=== PATIENT | male | born 1990 | race Two or more races ===

== ENCOUNTER 2024-01-11 11:02 | Inpatient (IN) ==
--- NOTE | 2024-01-11 11:19 | Emergency Department Note ---
Impression & Plan Suicidal ideations, Marijuana use, Depression, Anxiety ED Provider Note NAME: NIGEL HUMMEL AGE: 33 SEX: M : 1990 ARRIVES VIA: [employer] INFORMANT: Patient ED PROVIDER(S): David Lainez DO CHIEF COMPLAINT: SI HPI: Patient is a 33-year-old male with a past medical history of depression, anxiety, who presents to the ER for suicidal ideations with a plan to overdose on medications. He notes he is just waiting to get the antimotility medicine so we can keep the medicines in him longer. He notes he would overdose on his psychotic medications. Denies any headache or change in vision. No chest pain or shortness of breath. No dysuria, urgency, or frequency. Admits to a history of depression and anxiety which is worsened since 2019 when his mom got sick. He notes that he has lost a fair amount of weight over the past year and is following with GI. ADDITIONAL HISTORY OBTAINED: Per HPI Chronic Medical/Social Conditions Affecting Care: Per HPI PAST MEDICAL HISTORY:See Below PAST SURGICAL HISTORY:See Below FAMILY HISTORY:See Below SOCIAL HISTORY:See Below HOME MEDICATIONS:See Below ALLERGIES:See Below VITALS:See Below PHYSICAL EXAMINATION: GENERAL: Sitting up in bed, alert, well appearing, well nourished, no distress, non-toxic EYE EXAM: normal conjunctiva. OROPHARYNX: no exudate, no erythema, lips, buccal mucosa, and tongue normal and mucous membranes are moist NECK: supple, no nuchal rigidity, no adenopathy, non-tender LUNGS: Clear to auscultation. Normal chest wall mechanics HEART: no murmurs, S1 normal and S2 normal ABDOMEN: abdomen soft, non-tender, normo-active bowel sounds, no masses, no rebound or guarding. UPPER EXTREMITIES: upper extremities are grossly normal. LOWER EXTREMITIES: No pitting edema. NEURO EXAM: Normal sensorium, cranial nerves II-XII grossly intact, normal speech, no gross weakness of arms, no gross weakness of legs. No drift. Finger to nose intact. Gross sensation intact. PSYCH: Admits to suicidal ideations with a plan to overdose MEDICAL DECISION MAKING: Patient is a 33-year-old male who presents to the ER for suicidal ideations with a plan to kill himself. Blood work was obtained. Labs show no significant leukocytosis or anemia. BMP with LFTs and TSH was unremarkable. UA was clean. Tox was negative with the exception of marijuana. Alcohol and COVID-negative. Patient was discussed with her psychiatric day care worker. Seen and evaluated by 3 S. after referral was made and admitted for further workup. Consults/Care Managements Discussions: Per [facility] Triage Nursing notes reviewed. Limited review of prior medical records performed Vital Signs: reviewed and remarkable for no significant abnormalities Differential diagnosis: Mood disorder, infection, hypoglycemia, electrolyte abnormalities, cardiac sources, intracerebral event, toxicologic, trauma, neurologic, as well as other pathologies. ER treatment provided: See below Diagnostics interpreted by me include EKG and cardiac monitoring as listed below: -ECG: none -Laboratory studies:Interpreted by me as stated above in MDM and shown below. Imaging studies: Xrays: As interpreted by me:none CTs show: none Procedures:none Critical Care: None Past Med/Surg History Problem List (Updated 01/11/24 @ 16:37 by David Lainez DO) Anxiety (Acute) Depression (Acute) Marijuana use (Acute) Suicidal ideations (Acute) Social History Smoking Status: Current every day smoker Preferred Language: Greek Feels Safe at Home: Yes Gender Identity: Male Allergies Allergies Allergy/AdvReac Type Severity Reaction Status Date / Time animal dander Allergy Intermediate ITCHY Verified 11/06/23 17:12 EYES, SNEEZING cat dander Allergy Intermediate ITCHY Verified 11/06/23 17:12 EYES, SNEEZING, CONGESTION dog dander Allergy Intermediate ITCHY Verified 11/06/23 17:12 EYES, SNEEZING milk Allergy Intermediate POSITIVE Verified 11/06/23 17:12 TEST, GI UPSET Milk Containing Products Allergy Intermediate Gastrointestinal Verified 11/06/23 17:12 (Dairy) Upset pollen extracts Allergy Intermediate ITCHY Verified 11/06/23 17:12 EYES, RUNNY NOSE, SNEEZING, CONGESTION HOUSE RODENTS Allergy Intermediate ITCHY Uncoded 11/06/23 17:12 EYES, SNEEZING, CONGESTION Home Meds Home Medications Medication Instructions Recorded Confirmed montelukast 10 mg tablet 10 mg PO QAM 01/06/23 01/11/24 (Singulair) multivitamin 1 tab PO QAM 01/06/23 01/11/24 albuterol sulfate 2.5 mg/3 mL 2.5 mg inhalation DIRECTED PRN 11/06/23 01/11/24 (0.083 %) solution for nebulization Shortness Of Breath Or Wheezing albuterol sulfate 90 mcg/actuation 2 puff inhalation QID PRN 11/06/23 01/11/24 aerosol inhaler Shortness Of Breath Or Wheezing cariprazine 1.5 mg capsule 1.5 mg PO DAILY 11/06/23 01/11/24 (Vraylar) loratadine 10 mg tablet (Claritin) 10 mg PO DAILY PRN Congestion 11/06/23 01/11/24 venlafaxine 75 mg capsule,extended 75 mg PO QAM 11/06/23 01/11/24 release 24 hr Previous Rx's Medication Instructions Recorded sucralfate 1 gram tablet (Carafate) 1 g PO ACHS #28 tabs 11/06/23 Results & Data (ED) Vital Signs Vital Signs - 24 hr 01/11/24 11:30 01/11/24 11:39 01/11/24 13:21 Temperature 36.8 C 36.8 C Temperature Source Oral Oral Pulse Rate 109 H Pulse Rate [Finger] 109 H 80 Pulse Rhythm Regular Pulse Rhythm [Finger] Regular Regular Pulse Strength Normal Pulse Strength [Finger] Normal Normal Respiratory Rate 20 20 18 Respiratory Effort / Characteristics Non-Labored Spontaneous Non-Labored Spontaneous Respiratory Depth Normal Normal Normal Blood Pressure 166/84 H Blood Pressure [Left Arm] 166/84 H 132/78 Blood Pressure Mean 111 Blood Pressure Mean [Left Arm] 111 96 Blood Pressure Position Sitting Blood Pressure Position [Left Arm] Sitting Lying Pulse Oximetry 96 96 96 Oxygen Delivery Method Room Air Room Air Room Air Sepsis Recent Fever Within 48 Hours No Sepsis New/Unexplained Change in Mental Status N/A Sepsis Action Taken by Nursing No Action Required Laboratory Data 01/11/24 11:23 01/11/24 11:23 Lab Results 01/11/24 01/11/24 01/11/24 Range/Units 11:23 11:28 Unknown WBC 7.74 (4.8-10.8) K/ul RBC 5.78 (4.70-6.10) M/uL Hgb 16.5 (14.0-18.0) g/dl Hct 48.4 (42.0-52.0) % MCV 83.7 (80.0-100.0) fL MCH 28.5 (25.0-34.0) pg MCHC 34.1 (32.0-36.0) g/dL RDW Std Deviation 40.3 (36.4-46.3) fL RDW Coeff of Deven 13.2 (11.5-14.5) % Plt Count 271 (130-400) K/uL MPV 10.3 (9.4-12.4) fL Immature Gran % (Auto) 0.6 % Neut % (Auto) 47.5 % Lymph % (Auto) 33.6 % Childress % (Auto) 8.9 % Eos % (Auto) 8.5 % Baso % (Auto) 0.9 % Neut # (Auto) 3.67 (1.40-6.50) K/uL Lymph # (Auto) 2.60 (1.20-3.40) K/uL Childress # (Auto) 0.69 H (0.11-0.59) K/uL Eos # (Auto) 0.66 H (0.00-0.50) K/uL Baso # (Auto) 0.07 (0.00-0.20) K/uL Immature Gran # (Auto) 0.05 (0.01-0.20) K/uL Sodium 139 (136-145) mmol/L Potassium 3.8 (3.5-5.1) mmol/L Chloride 105 (98-107) mmol/L Carbon Dioxide 26 (21-32) mmol/L Anion Gap 8 (3-11) BUN 13 (6-23) mg/dl Creatinine 0.92 (0.6-1.4) mg/dl Est Cr Clr Drug Dosing 127.9 ml/min Est GFR ( Amer) 128.0 ml/min Est GFR (Non-Af Amer) 110.4 ml/min BUN/Creatinine Ratio 14.1 (10-20) Glucose 109 H (70-99(Fasting)) mg/dl Calcium 9.8 (8.6-10.3) mg/dl Total Bilirubin 0.5 (0.2-1.0) mg/dl AST 18 (13-39) U/L ALT 19 (7-52) U/L Alkaline Phosphatase 67 (34-104) U/L Total Protein 8.0 (6.0-8.3) gm/dl Albumin 4.9 (3.4-5.0) gm/dl Globulin 3.1 (2.5-4.0) gm/dl Albumin/Globulin Ratio 1.6 (0.9-2) TSH 0.975 (0.300-4.500) uIu/ml Urine Color Yellow Urine Appearance Clear (Clear) Urine pH 6.0 (4.5-7.5) Ur Specific Baxter 1.017 (1.000-1.030) Urine Protein Negative (Negative) Urine Glucose (UA) Negative (Negative) Urine Ketones Negative (Negative) Urine Blood Negative (Negative) Urine Nitrite Negative (Negative) Urine Bilirubin Negative (Negative) Urine Urobilinogen Negative (Negative) Ur Leukocyte Esterase Negative (Negative) Salicylates < 3.0 L (3.0-30) mg/dl Urine Opiates Screen Neg (Neg) Ur Methadone, Qual Neg (Neg) Urine Fentanyl Screen Neg (Neg) Acetaminophen < 3 L (10-30) ug/ml Urine Barbiturates Neg (Neg) Ur Phencyclidine (PCP) Neg (Neg) U Amphetamin/Meth Scrn Neg (Neg) MDMA (Ecstasy) Screen Neg (Neg) U Benzodiazepines Scrn Neg (Neg) Ur Cocaine Metabolite Neg (Neg) U Marijuana (THC) Screen Pos H (Neg) Ethyl Alcohol mg/dL < 10.0 (<10.0) mg/dl SARS-CoV-2, RNA, NAAT NEGATIVE (NEGATIVE) Discharge Plan Visit Data Chief Complaint: Mental Health Evaluation ED Provider: David Lainez Discharge Problem: Suicidal ideations, Marijuana use, Depression, Anxiety Patient Disposition: Admitted As Inpatient Discharge Instructions Interventions: ED Discharge Assessment Last Done: 01/11/24 16:29 Forms Stand Alone Forms: [facility], Suicide Prevention Resources Prescriptions Prescriptions: No Action multivitamin [Multi-Vitamins] Tablet 1 tab PO QAM montelukast [Singulair] 10 mg tablet 10 mg PO QAM venlafaxine 75 mg capsule,extended release 24hr 75 mg PO QAM albuterol sulfate 2.5 mg /3 mL (0.083 %) solution for nebulization 2.5 mg inhalation DIRECTED PRN (Reason: Shortness Of Breath Or Wheezing) albuterol sulfate 90 mcg/actuation HFA aerosol inhaler 2 puff INHALATION QID PRN (Reason: Shortness Of Breath Or Wheezing) loratadine [Claritin] 10 mg Tablet 10 mg PO DAILY PRN (Reason: Congestion) Vraylar 1.5 mg Capsule 1.5 mg PO DAILY sucralfate [Carafate] 1 gram tablet 1 g PO ACHS Qty: 28 0RF Referrals Referrals: Emili Emery CRNP [Primary Care Provider] -
[2024-01-11 11:53] LABS: Appearance Urine Clear (Clear); Bilirubin Urine Negative (Negative); Blood Urine Negative (Negative); Color Urine Yellow; Glucose Urine UA Negative (Negative); Ketones Urine Negative (Negative); Leukocyte Esterase Urine Negative (Negative); Nitrite Urine Negative (Negative); Protein Urine Negative (Negative); Specific Gravity Urine 1.017 (1.000-1.030); Urobilinogen Urine Negative (Negative)
[2024-01-11 12:02] LABS: Basophils # (auto) 0.07 K/uL (0.00-0.20); Basophils % (auto) 0.9 %; Eosinophils # (auto) 0.66 K/uL (0.00-0.50); Eosinophils % (auto) 8.5 %; Hematocrit (blood only) 48.4 % (42.0-52.0); Hemoglobin 16.5 g/dl (14.0-18.0); Immature Granulocytes # (auto) 0.05 K/uL (0.01-0.20); Immature Granulocytes % (auto) 0.6 %; Lymphocytes % (auto) 33.6 %; Mean Corpuscular Hemoglobin 28.5 pg (25.0-34.0); Mean Corpuscular Hgb Conc 34.1 g/dL (32.0-36.0); Mean Corpuscular Volume 83.7 fL (80.0-100.0); Mean Platelet Volume 10.3 fL (9.4-12.4); Monocytes # (auto) 0.69 K/uL (0.11-0.59); Monocytes % (auto) 8.9 %; Neutrophils # (auto) 3.67 K/uL (1.40-6.50); Neutrophils % (auto) 47.5 %; Platelet Count 271 K/uL (130-400); RDW Coefficient of Variation 13.2 % (11.5-14.5); RDW Standard Deviation 40.3 fL (36.4-46.3); Red Blood Count 5.78 M/uL (4.70-6.10); White Blood Count 7.74 K/ul (4.8-10.8)
[2024-01-11 12:17] LABS: Acetaminophen < 3 ug/ml (10-30); Salicylate < 3.0 mg/dl (3.0-30)
[2024-01-11 12:20] LABS: Albumin Globulin Ratio 1.6 (0.9-2); Albumin Level 4.9 gm/dl (3.4-5.0); BUN Creatinine Ratio 14.1 (10-20); Bilirubin,Total 0.5 mg/dl (0.2-1.0); Calcium 9.8 mg/dl (8.6-10.3); Creatinine Clr Calc Pharmacy 127.9 ml/min; Est GFR (Non-African American) 110.4 ml/min; Globulin 3.1 gm/dl (2.5-4.0); Potassium 3.8 mmol/L (3.5-5.1)
[2024-01-11 12:21] LABS: Amphetamines+Metham, Urine Neg (Neg); Barbiturates, Urine Neg (Neg); Benzodiazepine, Urine Neg (Neg); Cocaine, Urine Neg (Neg); Fentanyl, Urine Neg (Neg); MDMA (Ecstacy), Urine Neg (Neg); Marijuana, Urine Pos (Neg); Methadone, Urine Neg (Neg); Opiate, Urine Neg (Neg); Phencyclidine, Urine Neg (Neg)
[2024-01-11 12:34] LABS: Thyroid Stimulating Hormone 0.975 uIu/ml (0.300-4.500)
[2024-01-11] MEDS ORDERED: MAGNESIUM HYDROXIDE SUSP 30 ML UDC PO PRN (16:55)
[2024-01-11] MEDS ORDERED: BISMUTH SUBSALICYLATE LIQD 236 ML PO PRN (16:55)
[2024-01-11] MEDS ORDERED: ALUMINUM/MAGNESIUM SUSP 30 ML UDC PO PRN (16:55)
[2024-01-11] MEDS ORDERED: hydrOXYzine HCl 25 MG TAB PO PRN ×2 (16:55)
[2024-01-11] MEDS ORDERED: SODIUM CHLORIDE 0.65% NA SOLN 45 ML (OCEAN) PRN (16:55)
[2024-01-11] MEDS ORDERED: SIMETHICONE 80 MG CHEW PO PRN (17:05)
[2024-01-11] MEDS: ACETAMINOPHEN 325 MG TAB PO PRN (17:28)
[2024-01-11] MEDS: SUCRALFATE 1 GM TAB PO SCH (17:38)
[2024-01-12] MEDS: PROPRANOLOL HCL 10 MG TAB PO PRN (07:37)
[2024-01-12] MEDS: LORATADINE 10 MG TAB PO SCH (08:14)
[2024-01-12] MEDS: lamoTRIgine 100 MG TAB PO SCH (08:14)
[2024-01-12] MEDS: CARIPRAZINE HCL 3 MG CAP PO SCH (08:14)
[2024-01-12] MEDS: CARIPRAZINE HCL 1.5 MG CAP PO SCH (08:14)
[2024-01-12] MEDS: MONTELUKAST SODIUM 10 MG TABLET PO SCH (08:15)
[2024-01-12] MEDS: VENLAFAXINE HCL XR 150 MG CAPXR PO SCH (08:15)
[2024-01-12] MEDS ORDERED: HYDROCORTISONE HC 2.5% CRM 30GM TUBE EXT PRN (11:23)
[2024-01-12] MEDS ORDERED: ONDANSETRON 4 MG OD TAB PO PRN (11:24)
[2024-01-12] MEDS: DOCUSATE SODIUM 100 MG CAP PO SCH (12:38)
[2024-01-12] MEDS: ONDANSETRON 4 MG OD TAB PO PRN (14:03)
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
[2024-01-13] MEDS: FEXOFENADINE 60 MG TAB PO SCH (07:53)
[2024-01-13 09:42] LABS: Marijuana Quant, GCMS Urine 1104 ng/mL (<5)
[2024-01-13 09:48] LABS: Folate (Folic Acid),Ser orPlas > 22.30 ng/ml (>5.38)
[2024-01-13 09:49] LABS: Vitamin B12 573 pg/ml (180-914)
[2024-01-13 10:07] LABS: Amylase 91 U/L (25-115)
[2024-01-13 10:13] LABS: Lipase 48 U/L (11-82)
--- NOTE | 2024-01-13 16:53 | Psychiatric Progress Note ---
Date of Service January 13, 2024 Impression / Recommendations Impression Forrest Boucher" is a unemployed, domiciled 33-year-old [place]ian Palestinian male history of borderline personality disorder, PTSD, depression, asthma, 60 pound weight loss over the last year who presents with suicidal ideation with plan to overdose on medications. He called 911 and was brought in by EMS. He was admitted on 01/11/24 16:37 on a 201 voluntary commitment for suicidal ideation. Reviewed scores of that international trauma questionnaire and patient presented positively for reexperiencing trauma, symptoms of avoidance, sense of a current threat and this is caused functional impairment; additionally patient tested positive for affective dysregulation, negative self-concept and a disturbance in relationships. Concern for complex symptoms of PTSD however may be related to major depression. Given history of treatment resistance for depression symptoms may stem from PTSD rather than depression. Patient was educated about various PTSD therapies and was encouraged to engage in proper counseling to process past traumas. Labs reviewed: amylase, lipase, B12, folate within expected limits; vitamin D low normal. Overall, I spent a total of 45 minutes with this case including review of chart records, nursing report, review of lab work, direct evaluation of the patient at bedside, counseling the patient, multidisciplinary team meeting, orders, and documentation in the electronic health record. (1) Complex posttraumatic stress disorder: (2) MDD (major depressive disorder), recurrent episode, moderate: (3) Cluster B personality disorder: (4) Cannabis dependence: (5) Nicotine dependence: (6) Gastrointestinal intolerance to foods: (7) Weight loss of more than 10% body weight: Plan 01/13/2024: Start Vit D 5000u daily, continue other medications and treatment plan. 01/12/2024: Resume home Venlafaxine ER 150 mg daily, Cariprazine 4.5 mg daily, Lamotrigine 100 mg daily Administered Mathews borderline personality screener, international trauma questionnaire, mood disorder questionnaire Labs: Lipase, amylase, vitamin D, B12, folate Discontinue loratadine, start fexofenadine 60 mg daily Start Colace 100 mg twice daily to prevent constipation Start hemorrhoid hydrocortisone cream as needed Start ondansetron 4 mg every 6 hours as needed for nausea Dietitian consult Social work to assist with establishing GI and ENT follow-up Inventory Assets Strengths: good insight, outpatient connection Needs: medical investigation into problems, counseling Suicide Risk Level Suicide Risk Level: High-Moderate (q15 min suicide checks) Risk Factors Assessment Male: Yes : No Do You Have Access To A Gun?: No Health Problems: Yes Mental Health Diagnoses: Yes Substance Use Disorders: Yes Previous Attempt: Yes Family History of Suicide: Yes Previous Psychiatric Hospitalization: Yes Hopelessness: Yes Protective Factors Assessment Caodaism Beliefs: Yes : No Responsible for Young Children: No Employed: No Stable Relationships: No Supportive Family: Yes Good Rapport with Provider: Yes Absence of Any Risk Factors Above: No Interval History Identifying Information Forrest Boucher" is a unemployed, domiciled 33-year-old [place]ian Palestinian male history of borderline personality disorder, PTSD, depression, asthma, 60 pound weight loss over the last year who presents with suicidal ideation with plan to overdose on medications. He called 911 and was brought in by EMS. He was admitted on 01/11/24 16:37 on a 201 voluntary commitment for suicidal ideation. Chief Complaint "Missing my dogs" Review of Systems Sleep Information Total Hours of Sleep: 7 Meal Information Percent Meal Consumed - Breakfast: 50 Percent Meal Consumed - Lunch: 90 Percent Meal Consumed - Dinner: 0 Nutrition Comment: c/o upset stomach Subjective Subjective Patient was seen & assessed and interval progress reviewed with treatment team nursing and social work. Patient reports breaking up with his fiance on Thursday and has not spoken to her since. Slept better last night and denies having distressing dreams. Reports seeing the dietitian and they discussed food journal. Reports on and off cramping even when not eating. Reports being on an increased dose of lamotrigine for the past 10 days. Reports past 1 week. Where his behavior changed and he was driving around, buying more things and was not sleeping; at this time his fiance said she felt uncomfortable with his behavior. He does not recall many details from this time. Reports past episodes of this happening when he was 19 years of age, 20, 23. Reports past investigations for GI symptoms included a CT abdomen which within expected limits. Reports not receiving PTSD therapy in the past and has gotten dialectical behavioral therapy and counseling. Reports PTSD symptoms started at 28 years of age and would previously just "shrink" when experiencing triggers. Reports not tolerating Seroquel, Abilify (akathisia), risperidone (galactorrhea). Has not taken lithium. Complains of a fear of abandonment and pushing people away to be in control. Complains of passive SI and not having a clear plan for the future. Physical Exam Mental Examination Appearance: Disheveled Eye Contact: Maintains Eye Contact Motor Behavior: Unremarkable Speech: Normal Mood: Euthymic Affect: Congruent (reactive) Thought Process: Intact and Linear Thought Content: Intact Hallucinations: None Insight: Fair Judgement: Fair Vital Signs (Past 24 Hours) Last Vital Signs Temp 36.8 C 01/13/24 06:38 Pulse 80 01/13/24 06:39 Resp 16 01/13/24 06:38 BP 147/81 H 01/13/24 06:39 Pulse Ox 98 01/11/24 17:08 O2 Del Method Room Air 01/11/24 17:08 Results & Data ([facility]) Laboratory Results Laboratory Results - last 24 hr 01/11/24 01/13/24 11:28 08:41 Amylase 91 Lipase 48 Vitamin B12 573 25-OH Vitamin D Total 30.6 Folate > 22.30 U Marijuana THC Carboxy 1104 H Drug Screen Comment SEE NOTE Current Inpatient Medications Current Inpatient Medications: Current Inpatient Medications Acetaminophen (Acetaminophen 325 Mg Tab) 650 mg PO Q4H PRN PRN Reason: Headache or Minor Fever Stop: 02/10/24 16:54 Last Admin: 01/12/24 12:41 Dose: 650 mg Al Hydrox/Mg Hydrox/Simethicone (Aluminum/Magnesium Susp 30 Ml Udc) 30 ml PO Q4H PRN PRN Reason: GI Upset Stop: 02/10/24 16:54 Bismuth Subsalicylate (Bismuth Subsalicylate Liqd 236 Ml) 15 ml PO PRN PRN PRN Reason: Loose Stool Stop: 02/10/24 16:54 Cariprazine (Cariprazine Hcl 1.5 Mg Cap) 1.5 mg PO DAILY [facility] Stop: 02/11/24 08:59 Last Admin: 01/13/24 07:52 Dose: 1.5 mg Cariprazine (Cariprazine Hcl 3 Mg Cap) 3 mg PO DAILY [facility] Stop: 02/11/24 08:59 Last Admin: 01/13/24 07:52 Dose: 3 mg Docusate Sodium (Docusate Sodium 100 Mg Cap) 100 mg PO BID [facility] Stop: 02/11/24 11:29 Last Admin: 01/13/24 07:53 Dose: 100 mg Fexofenadine HCl (Fexofenadine 60 Mg Tab) 60 mg PO DAILY [facility] Stop: 02/12/24 08:59 Last Admin: 01/13/24 07:53 Dose: 60 mg Hydrocortisone (Hydrocortisone Hc 2.5% Crm 30gm Tube) 1 appln EXT BID PRN PRN Reason: Hemorrhoids Stop: 02/11/24 11:22 Hydroxyzine HCl (Hydroxyzine Hcl 25 Mg Tab) 50 mg PO HSZ PRN PRN Reason: Insomnia Stop: 02/10/24 16:54 Hydroxyzine HCl (Hydroxyzine Hcl 25 Mg Tab) 25 mg PO Q4H PRN PRN Reason: Anxiety Stop: 02/10/24 16:54 Lamotrigine (Lamotrigine 100 Mg Tab) 100 mg PO QAM [facility]; Protocol Stop: 02/11/24 08:59 Last Admin: 01/13/24 07:53 Dose: 100 mg Magnesium Hydroxide (Magnesium Hydroxide Susp 30 Ml Udc) 30 ml PO DAILY PRN PRN Reason: Constipation Stop: 02/10/24 16:54 Montelukast Sodium (Montelukast Sodium 10 Mg Tablet) 10 mg PO QAM [facility] Stop: 02/11/24 08:59 Last Admin: 01/13/24 07:53 Dose: 10 mg Ondansetron HCl (Ondansetron 4 Mg Od Tab) 4 mg PO Q6H PRN PRN Reason: Nausea Stop: 02/11/24 11:23 Propranolol HCl (Propranolol Hcl 10 Mg Tab) 10 mg PO BID PRN PRN Reason: Anxiety Stop: 02/10/24 17:04 Last Admin: 01/12/24 07:37 Dose: 10 mg Simethicone (Simethicone 80 Mg Chew) 80 mg PO Q6H PRN PRN Reason: Flatulence Stop: 02/10/24 17:04 Sodium Chloride (Sodium Chloride 0.65% Na Soln 45 Ml ([place])) 1 - 2 sprays NA PRN PRN PRN Reason: Nasal Dryness/Congestion Stop: 02/10/24 16:54 Sucralfate (Sucralfate 1 Gm Tab) 1 gm PO QIDM [facility] Stop: 02/10/24 17:44 Last Admin: 01/13/24 12:12 Dose: 1 gm Venlafaxine HCl (Venlafaxine Hcl Xr 150 Mg Capxr) 150 mg PO QAM [facility] Stop: 02/11/24 08:59 Last Admin: 01/13/24 07:53 Dose: 150 mg Mental Health & Subst Abuse Tx Psychiatrist Name of Psychiatrist: [facility] Neva Devries) Psychiatrist's Date Of Appointment With Psychiatric Provider: 01/21/24 - Time of Appointment with Psychiatrist: 8:15AM Psychiatric Appointment Comment: Will be seen by psychiatrist after therapy appt Therapist Name of Therapist: [facility] Onaka Jaycob) Therapist's Date of Therapist Appointment: 02/01/24 - Thursday Time of Therapist Appointment: 11AM Therapy Appointment Comment: In Person Post Discharge Appointments Primary Care Physician Name Of Family Doctor/PCP: [facility] Talya Emery [facility] Date of Future Appointment with PCP: 03/04/24 - Thursday Time of Appointment with PCP: 9:00 AM
[2024-01-14] MEDS: CHOLECALCIFEROL 125 MCG (5,000 UNITS) TAB PO SCH (07:47)
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
== END 2024-01-15 10:45 | disposition home or self-care (01) | DRG 882 ==
LOC: ED 11:02 → 3S 16:30